=== PATIENT | male | born 1970 | race Hispanic/Latino ===

== ENCOUNTER 2018-03-31 15:08 | Emergency (ER) | payer OTHER ==
[2018-03-31] MEDS ORDERED: Tobramycin 0.3% OPHT SOLN OD STA (16:03)
[2018-03-31] MEDS ORDERED: PROPARACAINE/FLUORESCEIN SOD 100 DROP/5 ML BOTTLE ONE (16:05)
--- NOTE | 2018-03-31 16:06 | C.PDOC ---
History Of Present Illness 48 year old male presents to the ED for evaluation of right eye injury which he sustained at work, around 2-3 hours prior to arrival. Patient states he was accidentally hit in his right eye with a wire. He reports some eye discomfort. He denies severe pain or vision changes. Time Seen by Provider: 03/31/18 15:48 Chief Complaint (Nursing): Eye Problem History Per: Patient History/Exam Limitations: no limitations Onset/Duration Of Symptoms: Hrs Current Symptoms Are (Timing): Still Present Injury To Eye?: Yes Quality: denies: "Pain" Associated Symptoms: denies: Decreased Vision Additional History Per: Patient Past Medical History Reviewed: Historical Data, Nursing Documentation, Vital Signs Vital Signs: Last Vital Signs Temp 98.5 F 03/31/18 15:13 Pulse 98 H 03/31/18 15:13 Resp 18 03/31/18 15:13 BP 162/93 H 03/31/18 15:13 Pulse Ox 97 03/31/18 15:13 - Medical History PMH: HTN Surgical History: No Surg Hx Family History: States: Unknown Family Hx - Social History Hx Alcohol Use: Yes Hx Substance Use: No - Immunization History Hx Tetanus Toxoid Vaccination: No Hx Influenza Vaccination: No Hx Pneumococcal Vaccination: No Review Of Systems Eyes: Positive for: Other (right eye discomfort after injury ) Physical Exam - Physical Exam Appears: Non-toxic, No Acute Distress Skin: Normal Color, Warm, Dry Head: Atraumatic, Normacephalic, No Tenderness (right eyeball or right periorbital region ) Eye(s): bilateral: PERRL, EOMI, right: Other (subconjunctival hemorrhage to medial aspect ), left: Normal Inspection Neck: Supple Extremity: Normal ROM Neurological/Psych: Oriented x3, Normal Speech, Normal Cognition Additional Physical Exam Comments: visual acuity is 20/20. ED Course And Treatment O2 Sat by Pulse Oximetry: 97 (on RA) Pulse Ox Interpretation: Normal Progress Note: Fluorescein eye exam performed. Catie does not have corneal abrasion. Attempted to exam eye with ophthalmoscope, but his pupil is too small to examine. Case discussed with Dr. Bhatt, who instructs to give patient antibiotics and states he will see the patient in office at 1230 tomorrow. Patient is resting comfortably, showing no signs of distress and is stable for discharge. Patient given Rx for Tobramycin eye drops and is advised to f/u with Dr. bhatt as instructed. Disposition - Disposition Referrals: Timothy Bhatt MD [Staff Provider] - Disposition: HOME/ ROUTINE Disposition Time: 16:05 Condition: STABLE Additional Instructions: Follow up with [facility] tomorrow at 12:30 pm. Return to ED immediately if feel worse. Instructions: How to Use Eye Drops, Subconjunctival Hemorrhage Forms: [employer] ([place]) - Clinical Impression Clinical Impression: Subconjunctival hemorrhage, traumatic - PA / CW OPERATOR / Resident Statement MD/DO has reviewed & agrees with the documentation as recorded. - Scribe Statement The provider has reviewed the documentation as recorded by the Scribe (Montserrat Caicedo) All medical record entries made by the Scribe were at my direction and personally dictated by me. I have reviewed the chart and agree that the record accurately reflects my personal performance of the history, physical exam, medical decision making, and the department course for this patient. I have also personally directed, reviewed, and agree with the discharge instructions and disposition.
[2018-03-31] MEDS ORDERED: PROPARACAINE/FLUORESCEIN SOD 100 DROP/5 ML BOTTLE OD STA (16:09)
[2018-03-31] MEDS ORDERED: Tobramycin 0.3% OPH OINT ONE (16:24)
[2018-03-31 16:53] VITALS: BP 146/90; PULSE 94; RESP 20; TEMP 98.6
[2018-03-31 20:18] VITALS: O2SAT 97
== END 2018-03-31 16:51 | disposition home or self-care (01) ==
LOC: C.ER 15:08
DX: H11.31 Conjunctival hemorrhage, right eye (principal); W22.8XXA Striking against or struck by other objects, initial encounter; Y92.89 Other specified places as the place of occurrence of the external cause; Y99.0 Civilian activity done for income or pay